=== PATIENT | male | born 1995 | race African-American/Black ===

== ENCOUNTER 2024-02-14 17:33 | Emergency (ER) | payer SELFPAY ==
[~2024-02-14] VITALS: Ht 175.3 cm; Wt 101.3 kg
[2024-02-14 18:26] LABS: BASO # 0.02 K/mm3 (0.02-0.10); EOS # 0.13 K/mm3 (0.04-0.40); EOS % 2.7 % (0.0-4.0); HEMATOCRIT 47.5 % (42.0-52.0); HEMOGLOBIN 16.7 g/dL (13.5-18.0); LYMPH# 1.15 K/mm3 (1.50-4.00); MEAN CELL VOLUME 79 fl (78-100); MEAN CORPUSCULAR HEMOGLOBIN 28 pg (27-31); MEAN CORPUSCULAR HGB CONC 35 g/dL (33-37); MONO # 0.49 K/mm3 (0.20-0.80); NEU # 2.97 K/mm3 (1.40-6.50); PLATELET COUNT 196 K/mm3 (130-400); RED BLOOD COUNT 5.98 M/mm3 (4.20-5.60); RED CELL DISTRIBUTION WIDTH 13.2 % (11.5-14.5); WHITE BLOOD COUNT 4.8 K/mm3 (4.8-10.8)
[2024-02-14] MEDS ORDERED: BENTYL 20MG20 MG/TAB PO ×2 (18:31→19:37)
[2024-02-14] MEDS ORDERED: OZEMPIC1 MG/0.71 SQ ×2 (18:32→19:37)
[2024-02-14] MEDS ORDERED: LEVEMIR100 U/M1 SQ ×2 (18:33→19:37)
[2024-02-14] MEDS ORDERED: TOPCARE OMEPRAZ20 MG PO (18:34)
[2024-02-14] MEDS ORDERED: LISINOPRIL40 MG PO ×2 (18:34→19:37)
[2024-02-14] MEDS ORDERED: METFORMIN HYD1000 MG PO (18:35)
[2024-02-14] MEDS ORDERED: DAPAGLIFLOZIN10 MG PO (18:36)
[2024-02-14] MEDS ORDERED: ZYRTEC ALLERGY10 MG PO (18:36)
[2024-02-14] MEDS ORDERED: SIMVASTATIN20 M1 PO (18:37)
[2024-02-14 18:38] LABS: ALBUMIN 4.7 g/dL (3.5-5.0)
[2024-02-14 18:39] LABS: CALCIUM 10.1 mg/dL (8.3-10.5)
[2024-02-14 18:41] LABS: TOTAL PROTEIN 7.6 g/dL (6.4-8.3)
[2024-02-14 18:42] LABS: TOTAL BILIRUBIN 0.6 mg/dL (0.2-1.2)
[2024-02-14] MEDS ORDERED: Dicyclomine 10 MG CAP PO ONE (19:30)
[2024-02-14] MEDS ORDERED: metFORMIN 500 MG TAB PO ONE (19:30)
[2024-02-14] MEDS ORDERED: Insulin Glargine-ygfn (Lantus) SQ ONE (19:30)
[2024-02-14] MEDS ORDERED: Lisinopril 20 MG TAB PO ONE (19:30)
[2024-02-14] MEDS ORDERED: FARXIGA10 MG PO (19:37)
[2024-02-14] MEDS ORDERED: COMFORT POINT I1 DEV (19:37)
[2024-02-14 19:52] VITALS: BP 135/94
== END 2024-02-14 19:52 | disposition home or self-care (01) ==
LOC: ED 17:33
PROVIDERS: Physician Assistant
DX: E11.65 Type 2 diabetes mellitus with hyperglycemia (principal); K58.9 Irritable bowel syndrome, unspecified; I10 Essential (primary) hypertension; R94.4 Abnormal results of kidney function studies; Z79.4 Long term (current) use of insulin; Z79.899 Other long term (current) drug therapy; Z79.84 Long term (current) use of oral hypoglycemic drugs
CPT/HCPCS: J1815